=== PATIENT | female | born 1975 | race Caucasian/White ===

== ENCOUNTER 2022-08-08 13:43 | Emergency (ER) | payer MEDICAID ==
[~2022-08-08] VITALS: Ht 154.9 cm; Wt 99.5 kg
[2022-08-08] MEDS ORDERED: OxyCODONE HCL/ACETAMINOPHEN 5-325 MG TABLET PO ONE (14:30)
[2022-08-08 15:41] VITALS: BP 108/74
[2022-08-08] MEDS ORDERED: ACET-66 PO (16:38)
[2022-08-08] MEDS ORDERED: IBUP-1492 PO (16:38)
== END 2022-08-08 17:28 | disposition home or self-care (01) ==
LOC: EMS 13:45
DX: S82.51XA Displaced fracture of medial malleolus of right tibia, initial encounter for closed fracture (principal); Z98.890 Other specified postprocedural states; V89.2XXA Person injured in unspecified motor-vehicle accident, traffic, initial encounter; Y93.89 Activity, other specified; Y92.89 Other specified places as the place of occurrence of the external cause; Y99.8 Other external cause status
CPT/HCPCS: 99284; 73610-TC; 73630-TC; Z7502; Z7610

== ENCOUNTER 2025-03-14 15:23 | Emergency (ER) | payer MEDICAID ==
[~2025-03-14] VITALS: Ht 157.5 cm; Wt 97.0 kg
[~2025-03-14 15:23] MED LIST: ACET-66 PO; IBUP-1492 PO
[2025-03-14 15:40] VITALS: BP 136/70; PULSE 83; RESP 16; TEMP 98.2; O2SAT 98
== END 2025-03-14 16:33 | disposition left against medical advice (07) ==
LOC: EMS 15:23
DX: M79.602 Pain in left arm (principal); Z53.21 Procedure and treatment not carried out due to patient leaving prior to being seen by health care provider